=== PATIENT | female | born 1990 | race American Indian/Alaskan Native ===

== ENCOUNTER 2020-12-14 21:24 | Emergency (ER) | payer SELFPAY ==
[2020-12-14] MEDS ORDERED: MORPHINE 4 MG/1 ML INJ IM ONE (21:52)
--- NOTE | 2020-12-14 21:54 | Emergency Department Report ---
ED Female HPI - General Chief complaint: Urogenital-Female Stated complaint: PELVIC PAIN Time Seen by Provider: 12/14/20 21:52 Source: patient Mode of arrival: Ambulatory Limitations: No Limitations - History of Present Illness Initial comments: Patient presents secondary to abdominal pain. She reports having severe lower abdominal pain. This is in the left pelvic area. She is concerned for ovarian torsion. She states that she had torsion previously on the left side and that was in [place]. She states that it was fixed. She states that she actually did not have surgery however. She reports that she could not have surgery to stitch the ovary in place so that it would not retorsed. She states that she had abrupt onset of sharp left pelvic pain today. There is no trauma. She has no vaginal bleeding or discharge. She has no flank pain. She states that this is the same kind of pain that she had with torsion. It should be noted that the patient is moaning and yelling. She is writhing. History is somewhat limited because of her lack of cooperation and apparent degree of pain. - Related Data Previous Rx's Medication Instructions Recorded Last Taken Type Ibuprofen [Motrin] 800 mg PO Q8HR PRN #20 tablet 12/15/20 Unknown Rx Ondansetron [Zofran Odt] 4 mg PO Q8HR PRN #20 tab.rapdis 12/15/20 Unknown Rx Allergies Allergy/AdvReac Type Severity Reaction Status Date / Time No Known Allergies Allergy Verified 12/14/20 21:52 ED Review of Systems ROS: Stated complaint: PELVIC PAIN Other details as noted in HPI Comment: All other systems reviewed and negative (Review of systems was obtained after pain control.) Constitutional: denies: fever Eyes: denies: vision change ENT: denies: throat pain Respiratory: denies: cough Cardiovascular: denies: chest pain Endocrine: denies: unexplained weight loss Gastrointestinal: as per HPI Genitourinary: denies: dysuria Musculoskeletal: denies: back pain Skin: denies: rash Neurological: denies: headache Hematological/Lymphatic: denies: easy bruising ED Past Medical Hx - Past Medical History Previous Medical History?: Yes Additional medical history: She reported ovarian torsion but denied surgery for fixation. - Family History Family history: no significant - Medications Home Medications: Home Medications Medication Instructions Recorded Confirmed Last Taken Type Ibuprofen [Motrin] 800 mg PO Q8HR PRN #20 tablet 12/15/20 Unknown Rx Ondansetron [Zofran Odt] 4 mg PO Q8HR PRN #20 tab.rapdis 12/15/20 Unknown Rx ED Physical Exam - General Limitations: No Limitations, Physical Limitation ( Histrionic), Other ( pulse ox is noted and normal. Is not hypoxic.) General appearance: alert, in distress ( Uncomfortable and writhing and screaming.) - Head Head exam: Present: atraumatic, normocephalic, normal inspection - Eye Eye exam: Present: normal appearance, EOMI. Absent: scleral icterus - ENT ENT exam: Present: normal exam, normal orophraynx, normal external ear exam - Neck Neck exam: Present: normal inspection. Absent: meningismus - Respiratory Respiratory exam: Present: normal lung sounds bilaterally. Absent: respiratory distress - Cardiovascular Cardiovascular Exam: Present: regular rate, normal rhythm - GI/Abdominal GI/Abdominal exam: Present: soft, tenderness ( Left pelvic). Absent: guarding, rebound - Extremities Exam Extremities exam: Present: normal capillary refill. Absent: pedal edema - Back Exam Back exam: Absent: CVA tenderness (R), CVA tenderness (L) - Neurological Exam Neurological exam: Present: oriented X3, CN II-XII intact, normal gait. Absent: alert - Psychiatric Psychiatric exam: Present: other ( histrionic) - Skin Skin exam: Present: warm, dry ED Course Vital Signs 12/15/20 02:59 Temperature 98.9 F Pulse Rate 97 H Respiratory 18 Rate Blood Pressure 179/105 [Left] O2 Sat by Pulse 100 Oximetry - Reevaluation(s) Reevaluation #1: 12/14/20 21:54 meds and labs ordered. Reevaluation #2: 12/15/20 00:22 Patient had not improved and a dose of Dilaudid 0.5 mg was given. Upon reevaluation now, she is still complaining of pain although she is less vocal. Toradol was ordered as she is not . Ectopic has been excluded. Reevaluation #3: 12/15/20 01:35 Patient is resting. Ultrasound is pending. Reevaluation #4: 12/15/20 03:11 Ultrasound was discussed with sterile proc tech. They did not appreciate any pathology. Official read is pending. Presumably, based on a negative ultrasound, patient will be discharged. She certainly would not have evidence of torsion with a negative ultrasound. Clinically, I do not believe this represents torsion. She did not have any other peritoneal finding. Now that she has been sedate, pain is improved. She is still arousable and is not complaining of pain. Abdomen is now soft and nontender without peritoneal finding. ED Medical Decision Making - Medical Decision Making patient presents with left pelvic pain that she described as severe. She was not . Ectopic was excluded. Based on ultrasound, there was no evidence of torsion. Clinically, I do not believe this represents torsion. It is unlikely that she truly had torsion and could not undergo surgery for fixation and preventative measures. She had no flank pain and does not have symptoms that would suggest ureteral colic. She had immediate resolution after administ ration of the medication each time. At this time, she was discharged with outpatient referral. Critical Care Time: No Critical care attestation.: If time is entered above; I have spent that time in minutes in the direct care of this critically ill patient, excluding procedure time. ED Disposition Clinical Impression: Pelvic pain Disposition: 01 HOME / SELF CARE / HOMELESS Is pt being admited?: No Does the pt Need Aspirin: No Condition: Stable Instructions: Pelvic Pain, Female, [id number], Pain Without a Known Cause Additional Instructions: Drink plenty water. Return for problems. Follow-up with your regular doctor for recheck. Prescriptions: Ibuprofen [Motrin] 800 mg PO Q8HR PRN #20 tablet PRN Reason: Pain, Moderate (4-6) Ondansetron [Zofran Odt] 4 mg PO Q8HR PRN #20 tab.rapdis PRN Reason: Nausea Referrals: PRIMARY CARE, [Referring] - 3-5 Days BARB FREDERICK MD [Staff Physician] - 3-5 Days CONCEPCION WATERMAN MD [Staff Physician] - 3-5 Days
[2020-12-14] MEDS ORDERED: HYDROmorphone 1 MG/1 ML INJ IM ONE (22:45)
[2020-12-14 23:09] LABS: Bilirubin,Urine NEG (Negative); Blood,Urine MOD (Negative); Color,Urine Yellow (Yellow); HCG Qualitative,Urine Negative (Negative); Mucus,Urine FEW /HPF; Protein,Urine >500 mg/dL (Negative); Urobilinogen,Urine < 2.0 mg/dL (<2.0)
[2020-12-15] MEDS ORDERED: KETOROLAC 30 MG/1 ML INJ IM ONE (00:10)
[2020-12-15] MEDS ORDERED: ZIPRASIDONE MESYLATE 20 MG VIAL IM ONE (01:49)
[2020-12-15 03:01] VITALS: BP 179/105
--- NOTE | 2020-12-15 03:22 | Ultrasound Report ---
PELVIC ULTRASOUND INDICATION: left pain, evaluate for torsion COMPARISON: None pertinent available TECHNIQUE: Transabdominal FINDINGS: Uterus measures 7.9 x 3.2 x 4.4 cm. Endometrial stripe measures 1 mm. No uterine abnormalit ies are seen. Right ovary measures 3.4 cm in length and shows no abnormalities. Left ovary measures 4.4 cm in lengt h and shows no significant abnormalities. Small follicular-type cyst is seen. Flow is seen in both ov christofer. No free fluid is noted. IMPRESSION: Negative study Signer Name: Chico Alexander MD Signed: 12/15/2020 3:18 AM Workstation Name: [id number]
== END 2020-12-15 03:46 | disposition home or self-care (01) ==
LOC: ED 21:24
DX: R10.2 Pelvic and perineal pain (principal)
CPT/HCPCS: 81001; 81025; 93975; 96372; 99284; J1170; J1885; J2270; J3486

== ENCOUNTER 2020-12-15 07:27 | Emergency (ER) | payer SELFPAY ==
[2020-12-15 07:46] VITALS: BP 172/129
--- NOTE | 2020-12-15 07:56 | Emergency Department Report ---
Chief Complaint: Abdominal Pain Stated Complaint: PELVIC PAIN Time Seen by Provider: 12/15/20 07:58 - HPI History of Present Illness: Seen last night by ultrasound negative u/a noted has been d/c with RX her sister did not come get her so she checks back in with pain- she tells me sister did not come because she could not call her because its a long distance number. I've called sister and she is coming to get pt - ROS Review of Systems: pelvic pain- same as when she checked in with hours ago - Exam Vital Signs: Vital Signs 12/15/20 07:44 Temperature 98.5 F Pulse Rate 129 H Respiratory 19 Rate Blood Pressure 172/129 O2 Sat by Pulse 100 Oximetry provider noted HR 100- pt agitated and not cooperative Physical Exam: alert ambulatory no vomiting taking po crying for her sister to come abd snt no cva tenderness no fever EMR reviewed- including narcotic pain meds given- I've told pt we would give her no further narcotics- she was unhappy with that response. MSE screening note: Focused history and physical exam performed. Due to findings the following was ordered: MSE with her discharge papers from MD in hand-sister phoned will come and get her Pt instructed to get Rx filled and take as the doctor had instructed ED Disposition for MSE Condition: Stable Instructions: Abdominal Pain (ED)
== END 2020-12-15 08:01 | disposition home or self-care (01) ==
LOC: ED 07:27
DX: R10.2 Pelvic and perineal pain (principal)
CPT/HCPCS: 82962; 99283